=== PATIENT | female | born 1990 | race African-American/Black ===

== ENCOUNTER 2019-08-27 09:04 | Emergency (ER) | payer SELFPAY ==
[~2019-08-27] VITALS: Ht 162.6 cm; Wt 89.8 kg
[2019-08-27] MEDS ORDERED: IBUPROFEN 800 MG TABLET PO ONE (10:15)
[2019-08-27] MEDS ORDERED: ACETAMINOPHEN 325 MG TABLET PO ONE (10:15)
[2019-08-27] MEDS ORDERED: IBUPROFEN 800 MG TABLET ONE (10:25)
[2019-08-27] MEDS ORDERED: ACETAMINOPHEN ES 500 MG TABLET ONE (10:25)
[2019-08-27 10:39] LABS: BASOPHILS % (AUTO) 0.3 % (0.0-2.0); EOSINOPHILS # (AUTO) 0.1 K/uL (0.0-0.7); EOSINOPHILS % (AUTO) 2.7 % (0.0-7.0); HEMATOCRIT 41.3 % (31.2-41.9); HEMOGLOBIN 13.3 g/dL (10.9-14.3); LYMPHOCYTES # (AUTO) 1.9 K/uL (20.0-40.0); MEAN CORPUSCULAR HEMOGLOBIN 26.3 uug (24.7-32.8); MEAN CORPUSCULAR HGB CONC 32 g/dL (32.3-35.6); MEAN CORPUSCULAR VOLUME 81.6 fL (75.5-95.3); NEUTROPHILS # (AUTO) 1.9 K/uL (1.8-8.9); PLATELET COUNT (AUTO) 277 K/uL (179-408); RED BLOOD CELL COUNT(AUTO) 5.06 MIL/uL (3.63-4.92); WHITE BLOOD COUNT (AUTO) 4.5 K/uL (3.8-11.8)
[2019-08-27 10:46] LABS: MONOCYTES # (AUTO) 0.7 K/uL (2.0-10.0)
[2019-08-27 10:50] LABS: CREATININE 0.8 mg/dL (0.6-1.3); POTASSIUM 4.3 mmol/L (3.5-5.1)
[2019-08-27 10:55] LABS: BILIRUBIN,TOTAL 0.3 mg/dL (0.2-1.0); TOTAL PROTEIN, SERUM 8.3 g/dL (6.4-8.2)
[2019-08-27 11:03] LABS: *BILIRUBIN,URIN NEGATIVE (NEGATIVE); *BLOOD, URINE NEGATIVE (NEGATIVE); *CLARITY,URINE CLEAR (CLEAR); *COLOR,URINE YELLOW (YELLOW); *KETONES,URINE NEGATIVE (NEGATIVE); *URINE HCG, QUAL NEGATIVE (NEGATIVE); LEUKOCYTE ESTERASE ,URINE NEGATIVE (NEGATIVE); NITRITE, URINE NEGATIVE (NEGATIVE); UGLUCOSE NEGATIVE (NEGATIVE)
[2019-08-27 11:14] LABS: BAND % (MANUAL) 1 % (0-10); EOSINOPHILS % (MANUAL) 3 % (0-8); LYMPHOCYTES % (MANUAL) 42 % (20-40); MONOCYTES % (MANUAL) 16 % (2-10); NEUTROPHILS % (MANUAL) 38 % (42-75)
[2019-08-27 11:18] LABS: BACTERIA,URINE NONE SEEN /HPF (NONE SEEN); RBC,URINE 0-3 /HPF (0-3); SQUAMOUS EPITHELIAL CELL,UR FEW /HPF (NONE SEEN); WBC,URINE NONE SEEN /HPF (0-3)
--- NOTE | 2019-08-27 13:08 | NUR ---
Patient discharged to home in stable conditon. Written and verbal after care instructions given. Patient verbalizes understanding of instructions.pt walks in steady gait. copy of all the studies provided for pt to follow up.
[2019-08-27 13:09] VITALS: BP 110/68
== END 2019-08-27 13:11 | disposition home or self-care (01) ==
LOC: ER 09:04
DX: M54.5 Low back pain (principal); Z91.09 Other allergy status, other than to drugs and biological substances
CPT/HCPCS: 36415; 70030-TC; 72131; 84703; 85025; 85651; A4663; A9150